=== PATIENT | male | born 1975 | race Caucasian/White ===

== ENCOUNTER → 2017-06-07 08:16 | Outpatient (CLI) | payer OTHER, SELFPAY ==
[2017-06-07 11:05] LABS: Alanine Aminotransferase 53 IU/L (21-72); Albumin Globulin Ratio 1.3 (1.0-2.8); Alkaline Phosphatase 86 U/L (38-126); Aspartate Aminotransferase 84 IU/L (17-59); BUN Creatinine Ratio 13.3 (6-22); Bilirubin Total 0.7 mg/dL (0.2-1.3); Calcium 9.3 mg/dL (8.4-10.2); Cholesterol 242 mg/dL (140-199); Estimated Glomerular Filt Rate > 60.0 mL/min (>60); Globulin 3.2 g/dL (1.7-4.1); Glucose 84 mg/dL (70-100); HDL Cholesterol 93 mg/dL (40-60); Potassium 4.9 mmol/L (3.4-5.1); Sodium 140 mmol/L (137-145); Total Protein 7.2 g/dL (6.3-8.2)
[2017-06-07 11:13] LABS: HEMOLYSIS < 15 (0-50)
[2017-06-07 11:14] LABS: Triglycerides 850 mg/dL (35-150)
== END ==
PROVIDERS: Family Provider Family Medicine; PCP Family Medicine; Visit Provider Family Medicine
DX: I10 Essential (primary) hypertension (principal); E78.5 Hyperlipidemia, unspecified
CPT/HCPCS: 36415; 80053; 80061

== ENCOUNTER → 2017-06-29 08:46 | Outpatient (CLI) | payer OTHER, SELFPAY ==
--- NOTE | 2017-06-29 08:47 | DI.US.S_ITS ---
PROCEDURE: US ABDOMEN COMPLETE INDICATIONS: Elevated liver enzymes TECHNIQUE: Real-time scanning was performed of the abdominal and retroperitoneal organs, with image documentation. COMPARISON: None. FINDINGS: Liver: Liver is normal in size and homogeneous in echotexture. Gallbladder: The gallbladder appears normal Biliary ducts: Intrahepatic bile ducts are non-dilated. Extrahepatic bile duct caliber measures 6.0 mm. Normal is 6-7 mm or less in diameter, or 10 mm or less post-cholecystectomy. Pancreas: Visualized portions of the pancreas are sonographically normal. Spleen: Spleen is normal in size and homogeneous in echotexture. Kidneys: Kidneys are normal in size and echotexture. Right kidney measures 10.4 cm long; left kidney measures 12.1 cm long. No hydronephrosis but there is nephrolithiasis with 3 stones seen at the lower third collecting system of the right kidney measuring 4, 5 and 6 mm in dimension. No solid masses. Aorta: Visualized aorta is normal in caliber at less than 3 cm. Iliacs: Proximal common iliac arteries are normal in caliber at less than 2.5 cm. IVC: Intrahepatic inferior vena cava is patent. Miscellaneous: No free abdominal fluid. IMPRESSION: 3 separate inferior third right renal collecting system calculi ranging in size from 4-6 mm each, nonobstructive. The gallbladder and bile ducts appear normal. No liver lesions seen. Dictated by: Ankur Gay M.D. on 06/29/2017 at 13:12 Approved by: Ankur Gay M.D. on 06/29/2017 at 13:14
== END ==
PROVIDERS: Family Provider Family Medicine; PCP Family Medicine; Visit Provider Family Medicine
DX: N20.0 Calculus of kidney (principal)
CPT/HCPCS: 76700

== ENCOUNTER → 2017-07-28 08:33 | Outpatient (CLI) | payer OTHER, SELFPAY ==
[2017-07-28 09:27] LABS: Alanine Aminotransferase 62 IU/L (21-72); Albumin 4.4 g/dL (3.5-5.0); Albumin Globulin Ratio 1.3 (1.0-2.8); Alkaline Phosphatase 81 U/L (38-126); Aspartate Aminotransferase 85 IU/L (17-59); BUN Creatinine Ratio 21.1 (6-22); Bilirubin Total 1.2 mg/dL (0.2-1.3); Blood Urea Nitrogen 19 mg/dL (9-20); Calcium 9.4 mg/dL (8.4-10.2); Carbon Dioxide 27 mmol/L (22-32); Chloride 102 mmol/L (98-107); Cholesterol 226 mg/dL (140-199); Estimated Glomerular Filt Rate > 60.0 mL/min (>60); Globulin 3.5 g/dL (1.7-4.1); Glucose 94 mg/dL (70-100); HDL Cholesterol 85 mg/dL (40-60); HEMOLYSIS < 15 (0-50); Potassium 4.4 mmol/L (3.4-5.1); Sodium 140 mmol/L (137-145); Total Protein 7.9 g/dL (6.3-8.2); Triglycerides 522 mg/dL (35-150)
== END ==
PROVIDERS: Family Provider Family Medicine; PCP Family Medicine; Visit Provider Family Medicine
DX: E78.1 Pure hyperglyceridemia (principal); R79.89 Other specified abnormal findings of blood chemistry
CPT/HCPCS: 36415; 80053; 80061

== ENCOUNTER → 2017-08-04 09:35 | Outpatient (CLI) | payer OTHER, SELFPAY ==
[2017-08-07 10:00] LABS: Hepatitis A Antibody IgM NONREACTIVE; Hepatitis Acute Panel Interp 0.03; Hepatitis B Core Antibody IgM NONREACTIVE; Hepatitis B Surface Antigen NONREACTIVE; Hepatitis C Antibody NONREACTIVE
== END ==
PROVIDERS: Family Provider Family Medicine; PCP Family Medicine; Visit Provider Family Medicine
DX: R74.8 Abnormal levels of other serum enzymes (principal)
CPT/HCPCS: 80074

== ENCOUNTER → 2017-12-08 08:04 | Outpatient (CLI) | payer OTHER, SELFPAY ==
[2017-12-08 09:59] LABS: Alanine Aminotransferase 51 IU/L (21-72); Albumin 4.7 g/dL (3.5-5.0); Albumin Globulin Ratio 1.6 (1.0-2.8); Alkaline Phosphatase 79 U/L (38-126); Aspartate Aminotransferase 55 IU/L (17-59); BUN Creatinine Ratio 27.8 (6-22); Bilirubin Total 0.8 mg/dL (0.2-1.3); Blood Urea Nitrogen 25 mg/dL (9-20); Calcium 9.6 mg/dL (8.4-10.2); Carbon Dioxide 26 mmol/L (22-32); Chloride 100 mmol/L (98-107); Cholesterol 190 mg/dL (140-199); Estimated Glomerular Filt Rate > 60.0 mL/min (>60); Glucose 95 mg/dL (70-100); HDL Cholesterol 93 mg/dL (40-60); HEMOLYSIS < 15 (0-50); LDL Cholesterol Calculated 58 mg/dL (<100); Sodium 142 mmol/L (137-145); Total Protein 7.7 g/dL (6.3-8.2); Triglycerides 196 mg/dL (35-150)
== END ==
PROVIDERS: PCP Family Medicine; Visit Provider Family Medicine
DX: I10 Essential (primary) hypertension (principal); E78.2 Mixed hyperlipidemia
CPT/HCPCS: 36415; 80053; 80061

== ENCOUNTER 2018-06-25 08:12 | Emergency (ER) | payer OTHER, SELFPAY ==
[2018-06-25] VITALS (12 sets, daily range): BP systolic 114–170; BP diastolic 74–118; PULSE 69–91; RESP 14–95; TEMP 36.8; O2SAT 92–98; BMI 29.9
--- NOTE | 2018-06-25 08:39 | DI.RAD.S_ITS ---
PROCEDURE: XR CHEST 1V INDICATIONS: here for detox, cp,sob, vomited earlier TECHNIQUE: One view of the chest was acquired. COMPARISON: None. FINDINGS: Surgical changes and devices: None. Lungs and pleura: Lungs are clear. No pleural effusions or pneumothorax. Mediastinum: Mediastinal contours appear normal. Heart size is normal. Bones and chest wall: No suspicious bony lesions. Overlying soft tissues appear unremarkable. IMPRESSION: No acute cardiopulmonary disease. Dictated by: Maria T Collazo M.D. on 06/25/2018 at 8:34 Approved by: Maria T Collazo M.D. on 06/25/2018 at 8:35
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
[2018-06-25 09:09] LABS: HEMOLYSIS 41 (0-50)
[2018-06-25 09:10] LABS: Add Manual Diff / Slide Review NO; Basophils Absolute Auto 100 /uL (0-100); Basophils Percent Auto 1.8 % (0-2); Eosinophils Absolute Auto 0 /uL (0-450); Eosinophils Percent Auto 0.2 % (2-4); Hematocrit 46.3 % (41-53); Lymphocytes Absolute Auto 1200 /uL (1100-4500); Lymphocytes Percent Auto 29.3 % (25-40); Mean Corpuscular HGB Conc 34.5 % (30-36); Mean Corpuscular Hemoglobin 33.1 PG (26-34); Mean Corpuscular Volume 95.8 fL (80-100); Monocytes Absolute Auto 500 /uL (0-900); Monocytes Percent Auto 10.9 % (3-14); Neutrophils Absolute Auto 2400 /uL (1500-7000); Neutrophils Percent Auto 57.8 % (50-75); Platelet Count 134 X10^3/uL (150-400); Red Blood Cell Count 4.84 X10^6/uL (4.5-5.9); White Blood Cell Count 4.2 X10^3/uL (4.5-11.0)
[2018-06-25 09:16] LABS: Alanine Aminotransferase 79 IU/L (21-72); Albumin 4.6 g/dL (3.5-5.0); Albumin Globulin Ratio 1.2 (1.0-2.8); Alkaline Phosphatase 80 U/L (38-126); Aspartate Aminotransferase 187 IU/L (17-59); Bilirubin Total 0.9 mg/dL (0.2-1.3); Bilirubin Unconjugated 0.5 mg/dL (0.0-1.1); Blood Urea Nitrogen 20 mg/dL (9-20); Calcium 9.1 mg/dL (8.4-10.2); Carbon Dioxide 26 mmol/L (22-32); Chloride 99 mmol/L (98-107); Creatine Kinase 273 U/L (55-170); Estimated Glomerular Filt Rate > 60.0 mL/min (>60); Ethanol (ETOH) 260 mg/dL; Globulin 3.7 g/dL (1.7-4.1); Glucose 100 mg/dL (70-100); Lipase 174 U/L (23-300); Potassium 4.3 mmol/L (3.4-5.1); Sodium 137 mmol/L (137-145); Total Protein 8.3 g/dL (6.3-8.2)
[2018-06-25] MEDS: LORazepam 2 MG/ML INJ 1 MG IV ×3 (09:16→15:38)
[2018-06-25] MEDS: SODIUM CHLORIDE 0.9% 1,000 ML 1000 ML IV ×2 (09:16→10:14)
[2018-06-25 09:28] LABS: Troponin I < 0.012 ng/mL (0.01-0.034)
[2018-06-25 09:30] LABS: CKMB % Relative Index 0.6 % (1.5-5.0); Creatine Kinase MB 1.73 ng/mL (<2.37)
--- NOTE | 2018-06-25 10:03 | PC.NURSE ---
Patient took all of his normal home medications per MD Wang,
[2018-06-25] MEDS: ONDANSETRON 4 MG/2 ML INJ IV (10:12)
[2018-06-25 10:52] LABS: Urine Amphetamines Negative (Negative); Urine Barbiturates Negative (Negative); Urine Benzodiazepines Negative (Negative); Urine Cocaine Negative (Negative); Urine MDMA Negative (Negative); Urine Methadone Negative (Negative); Urine Methamphetamines Negative (Negative); Urine Morphine/Opi cutoff 2000 Negative (Negative); Urine Oxycodone Negative (Negative); Urine Phencyclidine Negative (Negative); Urine Tetrahydrocannabinol Negative (Negative); Urine Tricyclic Antidepressant Negative (Negative)
[2018-06-25] MEDS: chlordiazePOXIDE 25 MG CAPSULE 50 MG PO (17:59)
== END 2018-06-25 18:44 | disposition home or self-care (01) ==
PROVIDERS: Emergency Provider Emergency Medicine; Family Provider Family Medicine; PCP Family Medicine
DX: F10.239 Alcohol dependence with withdrawal, unspecified (principal); R07.89 Other chest pain; R06.02 Shortness of breath
CPT/HCPCS: 36415; 36591; 71045; 80053; 80076; 80305; 80320; 81003; 82550; 82553; 83690; 83735; 84484; 85025; 93005; 93010; 96361; 96374; 96375; 96376; 99285; J2060; J2405

== ENCOUNTER 2018-06-26 09:43 | Emergency (ER) | payer OTHER, SELFPAY ==
[2018-06-26 09:45] VITALS: BP 149/99; PULSE 70; RESP 19; TEMP 36.6; O2SAT 98
[2018-06-26 10:45] LABS: Ethanol (ETOH) < 10 mg/dL
[2018-06-26] MEDS: SODIUM CHLORIDE 0.9% 1,000 ML 1000 ML IV (10:53)
[2018-06-26] MEDS: LORazepam 2 MG/ML INJ 1 MG IV (10:53)
[2018-06-26 11:00] VITALS: BP 133/99; PULSE 68; RESP 19; O2SAT 97
--- NOTE | 2018-06-26 11:16 | ED.ALCOHOL ---
HPI - Alcohol General Chief Complaint: Toxicology Problem Stated Complaint: detox,vomiting Time Seen by Provider: 06/26/18 10:03 Source: patient Mode of arrival: ambulatory Limitations: no limitations History of Present Illness HPI narrative: Patient comes to the emergency department complaining of feeling shaky and anxious overnight. Patient states he has felt a little bit nauseated, but has not been vomiting. Patient has a long history of alcoholism, and his last drink was about 55 hours ago. Patient was seen yesterday in the emergency department for withdrawal symptoms, and was treated with IV fluids. He was medically cleared to be seen at [facility], but patient states that he felt that he may just be discharged home without admission by them, and opted not to go. He patient was given Librium and sent home last night, but had a hard time sleeping and decided to come back in. He states that he believes the Librium just does not sedate him as much as the alcohol, and that is why he could not sleep well. Patient does admit that he is feeling somewhat better than he felt a couple of days ago, but is still struggling. Patient denies any other signs of acute illness. Nothing has worsened, symptom lomeli, since patient was discharged yesterday. Patient has not had a cough, chest pain, shortness of breath, sore throat, runny nose, or fever. No dysuria. No blood in his stools or melena. No other complaints at this time. Patient denies using any other substances. Related Data Home Medications Medication Instructions Recorded Confirmed ibuprofen 800 mg tablet 800 mg PO PRN PRN #0 06/21/17 12/15/17 omeprazole magnesium 20 mg 20 mg PO DAILY 08/04/17 06/26/18 tablet,delayed release Previous Rx's Medication Instructions Recorded atorvastatin 40 mg tablet 60 mg PO DAILY #135 tab 12/15/17 spironolactone 50 mg tablet 25 mg PO DAILY #90 tab 03/14/18 metoprolol tartrate 50 mg tablet 50 mg PO BID #180 tab 04/06/18 losartan 100 mg tablet 100 mg PO DAILY #30 tab 05/01/18 chlordiazepoxide HCl See Rx Instructions .ROUTE 06/25/18 .COMPLEX PRN #31 cap Allergies Allergy/AdvReac Type Severity Reaction Status Date / Time Penicillins [PENICILLINS] Allergy Unknown Rash Verified 06/25/18 08:24 Review of Systems Constitutional Denies chills, Denies fever(s), Denies lethargy and Denies weakness Eyes Denies change in vision, Denies eye discharge, Denies irritation and Denies loss of vision ENT Ears, Nose, Mouth, and Throat: Denies change in voice, Denies neck pain and Denies sore throat Cardiovascular Denies chest pain, Denies irregular heart rhythm, Denies lightheadedness, Denies palpitations, Denies dyspnea, Denies dyspnea on exertion and Denies orthopnea Respiratory Denies cough, Denies dyspnea, Denies dyspnea on exertion and Denies wheezing Gastrointestinal Gastrointestinal: Denies abdominal pain, Denies change in bowel habits, Denies diarrhea, Denies nausea and Denies vomiting Genitourinary Denies hematuria, Denies flank pain, Denies urinary incontinence and Denies urinary urgency Musculoskeletal Denies neck pain Integumentary/Breasts Denies pruritus, Denies erythema, Denies rash and Denies wounds Neurologic Denies confusion, Denies loss of vision and Denies weakness Comments: Tremulous, agitated. Psychiatric Denies anxiety, Denies confusion, Denies depression, Denies homicidal ideation and Denies suicidal ideation Endocrine Denies palpitations Hematologic/Lymphatic Denies easy bruising Allergic/Immunologic Denies wheezing [facility] Medical History Elevated liver enzymes (Acute) Hypertriglyceridemia (Acute) HTN (hypertension) (Chronic) Blindness (Chronic 1997) Surgical History No history of previous surgery (Resolved) Social History (Updated 06/25/18 @ 08:47 by Christen Wang DO) Smoking Status: Never smoker Smokeless tobacco user: chewing tobacco alcohol intake: current substance use type: does not use Social History Smoking Status: Never smoker Smokeless tobacco user: chewing tobacco alcohol intake: current substance use type: does not use Exam Initial Vital Signs Initial Vital Signs: Vital Signs Temperature 97.8 F 06/26/18 09:45 Pulse Rate 70 06/26/18 09:45 Respiratory Rate 19 06/26/18 09:45 Blood Pressure 149/99 H 06/26/18 09:45 Pulse Oximetry 98 06/26/18 09:45 Const General: cooperative and well developed Nutritional Appearance: well nourished Orientation: alert, awake, oriented x3 and not confused Other: Patient appears mildly anxious, but otherwise no apparent distress. [facility] Head: normocephalic and atraumatic Ears: external ears normal and TM's normal bilaterally Nose: external nose normal and No nasal discharge Face and sinus: sinuses nontender, face symmetric, no sinus tenderness and No dry mucous membranes Mouth: oral mucosae normal and moist mucous membranes Teeth and gingiva: dentition normal Throat: tonsils normal and uvula midline Eyes General: appearance normal, both eyes and all related structures Eyelids: eyelids normal Conjunctivae: conjunctivae normal Sclera: sclerae normal Pupils: PERRL EOM: EOM intact bilaterally Neck Neck: normal visual inspection, trachea midline, No lymphadenopathy, No midline deformity and No JVD Lymphatic: No lymphedema Chest Chest: normal inspection of the chest Resp Effort & Inspection: normal respiratory effort, able to speak in complete sentences, no respiratory distress and no use of accessory muscles Auscultation: clear to auscultation bilaterally, no rales, no rhonchi and no wheezes Cardio Rate: regular rate Rhythm: regular rhythm Heart Sounds: no click, no gallops, no murmurs and no rubs Pulses: normal peripheral pulses GI Inspection: non-distended Palpation: soft, no hepatosplenomegaly, No guarding, No pulsatile mass and No tender Auscultation: normal bowel sounds Back/Spine/Pelvis Back: No CVA tenderness Cervical Spine: cervical ROM normal and No pain with cervical ROM Thoracic/Lumbar Spine: thoracic and lumbar spine normal to inspection Skin General: no rashes or lesions noted, No jaundice and No petechiae Neuro General: alert, awake, oriented x3, gait normal and no focal motor deficits Speech: speech normal Other: Patient exhibits mild tremulousness. He is otherwise neurologically intact. Extrem General: full ROM, no clubbing, cyanosis or edema, no pedal edema and no calf tenderness Psych Appearance: well kempt Mental Status: mental status grossly normal Attitude: cooperative Thought Content: normal and suicidality Judgment: judgment good Course Course Narrative: Patient expressed interest in going back to [facility], and we did call them, and they stated they were willing to see the patient. Patient was given a L of IV fluid, at his request, and was also given a dose of Ativan here in the emergency department. Ethanol level was found to be less than 10. [facility] did confirm that they were willing to evaluate the patient today, and requested that he go straight there. Patient was agreeable to this plan. We have discussed that he needs to go straight there. We have discussed the usual emergency department indications for return. Patient is improved after symptomatic treatment. Orders Ordered: Discontinued Medications Sodium Chloride (Normal Saline 0.9%) 1,000 mls @ 1,000 mls/hr IV BOLUS ONE Stop: 06/26/18 11:42 Last Infusion: 06/26/18 11:48 Dose: 0 mls/hr Admin: 06/26/18 10:53 Dose: 1,000 mls/hr Lorazepam (Ativan) 1 mg IV NOW ONE Stop: 06/26/18 10:44 Last Admin: 06/26/18 10:53 Dose: 1 mg Vital Signs - 8 hr 06/26/18 09:45 Temperature 97.8 F Pulse Rate 70 Respiratory Rate 19 Blood Pressure 149/99 H Pulse Oximetry 98 MDM - Alcohol Medical Records Attestation: I reviewed the patient's medical records. Lab Data Attestation: I reviewed the patient's lab results. Labs: Lab Results 06/26/18 Range/Units 10:25 Ethyl Alcohol < 10 mg/dL Discharge Plan Departure Patient Disposition: Home Clinical Impression: Alcohol withdrawal Discharge Date/Time: 06/26/18 11:57 Interventions: ED Discharge Assessment Last Done: 06/26/18 11:56 Instructions: DI for Alcohol Abuse, DI for Drug or Alcohol Withdrawal Activity Restrictions/Additional Instructions: Please go straight to [facility], as you have been instructed to do. They would like you to be there are no later than 1300 this afternoon. Prescriptions: No Action atorvastatin 40 mg tablet 60 mg PO DAILY Qty: 135 RF: 1 omeprazole magnesium [Prilosec OTC] 20 mg tablet,delayed release (DR/EC) 20 mg PO DAILY RF: 0 ibuprofen 800 mg Tablet 800 mg PO PRN PRN (Reason: pain) Qty: 0 RF: 0 spironolactone 50 mg tablet 25 mg PO DAILY Qty: 90 RF: 0 metoprolol tartrate 50 mg tablet 50 mg PO BID Qty: 180 RF: 0 losartan 100 mg tablet 100 mg PO DAILY Qty: 30 RF: 1 chlordiazepoxide HCl 25 mg capsule See Rx Instructions .ROUTE .COMPLEX PRN (Reason: alcohol withdrawal) Qty: 31 RF: 0 Referrals: Roopa Michel DO [Primary Care Provider] -
[2018-06-26 11:30] VITALS: BP 140/91; PULSE 64; RESP 20; O2SAT 99
== END 2018-06-26 11:57 | disposition home or self-care (01) ==
PROVIDERS: Emergency Provider Emergency Medicine; Family Provider Family Medicine; PCP Family Medicine
DX: F10.239 Alcohol dependence with withdrawal, unspecified (principal)
CPT/HCPCS: 36415; 80320; 96361; 96374; 99283; 99284; J2060

== ENCOUNTER → 2018-08-15 07:28 | Outpatient (CLI) | payer OTHER, SELFPAY ==
[2018-08-15 07:49] LABS: Appearance Urine UA CLEAR; Bilirubin Urine UA NEGATIVE (NEGATIVE); Color Urine UA YELLOW; Glucose Urine UA NEGATIVE (Negative); Ketones Urine UA NEGATIVE (NEGATIVE); Leukocyte Esterase Urine UA NEGATIVE (NEGATIVE); Nitrite Urine UA NEGATIVE (Negative); Occult Blood Urine UA NEGATIVE (Negative); Protein Urine UA NEGATIVE (Negative); Urobilinogen Urine UA 0.2 E.U./dL (0.2); pH Urine UA 5.5 (4.5-8.0)
[2018-08-15 07:53] LABS: Add Manual Diff / Slide Review NO; Basophils Absolute Auto 100 /uL (0-100); Basophils Percent Auto 1.3 % (0-2); Eosinophils Absolute Auto 100 /uL (0-450); Eosinophils Percent Auto 1.6 % (2-4); Hematocrit 41.7 % (41-53); Hemoglobin 14.2 g/dL (13.5-17.5); Lymphocytes Absolute Auto 1500 /uL (1100-4500); Lymphocytes Percent Auto 27.7 % (25-40); Mean Corpuscular Hemoglobin 31.6 PG (26-34); Mean Corpuscular Volume 92.9 fL (80-100); Monocytes Absolute Auto 500 /uL (0-900); Monocytes Percent Auto 8.6 % (3-14); Neutrophils Absolute Auto 3200 /uL (1500-7000); Neutrophils Percent Auto 60.8 % (50-75); Platelet Count 220 X10^3/uL (150-400); Red Blood Cell Count 4.49 X10^6/uL (4.5-5.9); Red Cell Distribution Width 12.9 % (11.6-14.8); White Blood Cell Count 5.3 X10^3/uL (4.5-11.0)
[2018-08-15 08:01] LABS: Alanine Aminotransferase 32 IU/L (21-72); Albumin 4.3 g/dL (3.5-5.0); Albumin Globulin Ratio 1.4 (1.0-2.8); Alkaline Phosphatase 61 U/L (38-126); Aspartate Aminotransferase 30 IU/L (17-59); Bilirubin Total 0.7 mg/dL (0.2-1.3); Blood Urea Nitrogen 23 mg/dL (9-20); Calcium 9.5 mg/dL (8.4-10.2); Carbon Dioxide 27 mmol/L (22-32); Chloride 104 mmol/L (98-107); Cholesterol 122 mg/dL (140-199); Estimated Glomerular Filt Rate > 60.0 mL/min (>60); Glucose 100 mg/dL (70-100); HDL Cholesterol 49 mg/dL (40-60); HEMOLYSIS < 15 (0-50); LDL Cholesterol Calculated 56 mg/dL (<100); Potassium 4.6 mmol/L (3.4-5.1); Sodium 141 mmol/L (137-145); Total Protein 7.3 g/dL (6.3-8.2); Triglycerides 86 mg/dL (35-150)
[2018-08-15 08:31] LABS: Thyroid Stimulating Hormone 2.82 uIU/mL (0.47-4.68)
== END ==
PROVIDERS: PCP Family Medicine; Visit Provider Family Medicine
DX: E78.1 Pure hyperglyceridemia (principal); I10 Essential (primary) hypertension; R74.8 Abnormal levels of other serum enzymes; F10.239 Alcohol dependence with withdrawal, unspecified
CPT/HCPCS: 36415; 80053; 80061; 81003; 84443; 85025

== ENCOUNTER → 2019-01-10 07:00 | Outpatient (CLI) | payer OTHER, SELFPAY ==
[2019-01-10 07:40] LABS: Ammonia (NH3) < 9.0 umol/L (9-30)
[2019-01-10 09:36] LABS: Alanine Aminotransferase 47 IU/L (<50); Albumin 4.1 g/dL (3.5-5.0); Albumin Globulin Ratio 1.6 (1.0-2.8); Alkaline Phosphatase 77 U/L (38-126); Aspartate Aminotransferase 41 IU/L (17-59); BUN Creatinine Ratio 33.3 (6-22); Bilirubin Total 0.6 mg/dL (0.2-1.3); Blood Urea Nitrogen 30 mg/dL (9-20); Calcium 9.6 mg/dL (8.4-10.2); Carbon Dioxide 27 mmol/L (22-32); Chloride 104 mmol/L (98-107); Estimated Glomerular Filt Rate > 60.0 mL/min (>60); Globulin 2.5 g/dL (1.7-4.1); Glucose 91 mg/dL (70-100); HEMOLYSIS < 15 (0-50); Potassium 5.1 mmol/L (3.4-5.1); Sodium 138 mmol/L (137-145); Total Protein 6.6 g/dL (6.3-8.2)
== END ==
PROVIDERS: PCP Family Medicine; Visit Provider Family Medicine
DX: E78.1 Pure hyperglyceridemia (principal); F10.239 Alcohol dependence with withdrawal, unspecified; I10 Essential (primary) hypertension; R74.8 Abnormal levels of other serum enzymes
CPT/HCPCS: 36415; 80053; 82140; 84403

== ENCOUNTER → 2022-03-09 16:44 | Outpatient (CLI) | payer OTHER, SELFPAY ==
--- NOTE | 2022-03-09 16:46 | DI.US.S_ITS ---
PROCEDURE: US ABDOMEN LIMITED INDICATIONS: LEFT LOWER QUADRANT LUMP TECHNIQUE: Real-time focused scanning was performed of the inguinal region, with image documentation. COMPARISON: Merged With [facility], , US ABDOMEN COMPLETE, 06/29/2017, 9:03. FINDINGS: Within the left inguinal region, there is an apparent fat containing hernia, which appears partially reducible. The hernia neck measures 11 x 6 mm. IMPRESSION: Partially reducible fat containing hernia seen involving the left groin at the area of clinical concern. Surgical referral is recommended. If clinically appropriate, a CT of the pelvis with at least IV contrast could be considered for further evaluation. Dictated by: Checo Adhikari M.D. on 03/09/2022 at 17:58 Approved by: Checo Adhikari M.D. on 03/09/2022 at 17:59
== END ==
PROVIDERS: PCP Family Medicine; Referring Provider Family Medicine; Visit Provider Family Medicine
DX: K40.30 Unilateral inguinal hernia, with obstruction, without gangrene, not specified as recurrent (principal)
CPT/HCPCS: 76705

== ENCOUNTER 2023-05-18 15:25 | Day surgery (SDC) | payer OTHER, SELFPAY ==
[2023-05-18 15:42] VITALS: BP 148/80; PULSE 76; RESP 16; TEMP 36.6; O2SAT 99
--- NOTE | 2023-05-18 15:48 | PM.HP.1 ---
History of Present Illness History of Present Illness Date Patient Seen: 05/18/23 Time Patient Seen: 15:48 Chief complaint: Colonoscopy Narrative: Thong is a 48-year-old man here for colonoscopy. [facility] Medical History (Updated 05/18/23 @ 15:49 by Calos North MD) Blindness (1997) Elevated liver enzymes Hypertriglyceridemia HTN (hypertension) Surgical History No history of previous surgery Social History Smoking Status: Never smoker Smokeless tobacco user: chewing tobacco alcohol intake: former substance use type: does not use Meds Home Medications and Allergies Home Medications Medication Instructions Recorded Confirmed Type ibuprofen 800 mg tablet 800 mg PO PRN PRN pain ##0 06/21/17 05/18/23 History losartan 25 mg tablet 25 mg PO DAILY 05/17/23 05/18/23 History Allergies Allergy/AdvReac Type Severity Reaction Status Date / Time Penicillins [PENICILLINS] Allergy Unknown Rash Verified 05/18/23 15:41 Exam Vital Signs (past 8 hours): - 05/18/23 15:42 Temperature 97.8 F Pulse Rate 76 Respiratory Rate 16 Blood Pressure 148/80 H Pulse Oximetry 99 Oxygen Delivery Method Room Air Oxygen Delivery Method Room Air Const General: healthy appearing Assessment & Plan Assessment and plan (1) Colon cancer screening: Status: Acute Plan We reviewed the risks and benefits of colonoscopy for colon cancer screening and he would like to proceed.
[2023-05-18] MEDS: LACTATED RINGERS 1,000 ML 42 ML IV (15:51)
[2023-05-18 16:20] VITALS: BP 134/74; PULSE 68; RESP 19; TEMP 36.6; O2SAT 94
--- NOTE | 2023-05-18 16:20 | PM.OP.COLON ---
Operative Date/Time/Diagnoses Date of procedure: 05/18/23 Time of procedure: 16:20 Pre-op diagnosis: Colon cancer screening Post-op diagnosis: same Procedure & Clinicians Study performed: Colonoscopy Same procedure as scheduled: Yes Surgeon: Calos North Procedure Notes Procedure in detail: Surgeon: Calos North MD Anesthesia: Ruba Gaming DO Procedure: The patient was brought to the endoscopy suite, placed in left lateral decubitus position. The patient was connected to monitoring devices. A time-out was performed. Sedation was administered. Once the patient was adequately sedated, a digital rectal exam was performed and was normal. The scope was then inserted and advanced to the cecum where the appendiceal orifice was identified and photographed. The scope was then slowly withdrawn over greater than 6 minutes. The mucosa was thoroughly inspected. No abnormalities were found. The scope was retroflexed in the rectum. No abnormalities were seen. The scope was straightened and removed. The patient was awakened and brought to recovery. Scope withdrawal time: 7 minutes Sedation time: 18 minutes EBL: 0 Findings: Normal colon Post-procedure Recommendations: Colonoscopy in 10 years Disposition: PACU
[2023-05-18 16:25] VITALS: BP 123/74; PULSE 67; RESP 13; O2SAT 97
[2023-05-18 16:32] VITALS: BP 126/79; PULSE 66; RESP 14; O2SAT 96
[2023-05-18 16:35] VITALS: BP 121/76; PULSE 66; RESP 15; O2SAT 96
== END 2023-05-18 16:46 | disposition home or self-care (01) ==
PROVIDERS: PCP Family Medicine; Referring Provider Surgery; Visit Provider Surgery
PROC: 0DJD8ZZ Inspection of Lower Intestinal Tract, Via Natural or Artificial Opening Endoscopic (ICD-10-PCS; CPT 45378; principal; 2023-05-18 15:00)
DX: Z12.11 Encounter for screening for malignant neoplasm of colon (principal)
CPT/HCPCS: 45378; J2704